=== PATIENT | male | born 1975 | race Caucasian/White ===

== ENCOUNTER 2018-04-26 22:20 | Emergency (ER) | payer OTHER ==
[2018-04-26] MEDS ORDERED: ONDANSETRON 4 MG/2 ML VIAL ONE (22:37)
[2018-04-26] MEDS ORDERED: ASPIRIN 81 MG CHEWABLE TAB ONE (22:38)
[2018-04-26 22:39] LABS: PLATELET COUNT 208 10^3/uL (150-400)
[2018-04-26] MEDS ORDERED: ONDANSETRON 4 MG/2 ML VIAL IVP ONE (22:39)
[2018-04-26] MEDS ORDERED: FAMOTIDINE 20 MG/2 ML SDV ONE (22:56)
[2018-04-26] MEDS ORDERED: FAMOTIDINE 20 MG/2 ML SDV IVP ONE (22:57)
[2018-04-26] MEDS ORDERED: HYDROmorphONE/DILAUDID 1 MG/ML INJ ONE (23:09)
[2018-04-26] MEDS ORDERED: HYDROmorphONE/DILAUDID 1 MG/ML INJ IVP ONE (23:11)
[2018-04-26] MEDS ORDERED: IOPAMIDOL (ISOVUE-300) 100 ML BTL ONE (23:22)
--- NOTE | 2018-04-27 01:12 | EDPHY ---
H & P Stated Complaint: CP radiates to back Time Seen by Provider: 04/26/18 22:31 HPI/ROS: HPI The patient presents with epigastric abdominal pain and chest pain which began about 1 hr prior to presentation. Symptoms started as gradually and got progressively more severe. The pain radiated toward his back and then his chest. He now is feeling a pressure like sensation in his epigastrium. His symptoms began while he was watching television. He has not had any vomiting. He has a history of GERD, however his symptoms have never been like this before. REVIEW OF SYSTEMS 10 systems were reviewed and negative with the exception of the elements mentioned in the history of present illness. PMHx: GERD Soc Hx: No recent alcohol use FHx: Father and grandfather with history of DC PHYSICAL General Appearance: Alert, very uncomfortable appearing, writhing in pain Eyes: Pupils equal and round no pallor or injection ENT, Mouth: Mucous membranes moist Respiratory: There are no retractions, lungs are clear to auscultation Cardiovascular: Regular rate and rhythm Gastrointestinal: Abdomen is soft and tender in the epigastrium, no masses, bowel sounds normal Neurological: A&O, moves all extremities Skin: Warm and dry, no rashes Musculoskeletal: Neck is supple non tender Extremities: symmetrical, full range of motion Psychiatric: Patient is oriented X 3, there is no agitation Source: Patient Exam Limitations: No limitations - Personal History Current Tetanus/Diphtheria Vaccine: Yes Current Tetanus Diphtheria and Acellular Pertussis (TDAP): Yes - Medical/Surgical History Hx Asthma: No Hx Chronic Respiratory Disease: No Hx Diabetes: No Hx Cardiac Disease: No Hx Renal Disease: No Hx Cirrhosis: No Hx Alcoholism: No Hx HIV/AIDS: No Hx Splenectomy or Spleen Trauma: No Other PMH: reflux - Social History Smoking Status: Never smoked Constitutional: Initial Vital Signs Temperature (C) 36.6 C 04/26/18 22:26 Heart Rate 64 04/26/18 22:26 Respiratory Rate 18 04/26/18 22:26 Blood Pressure 132/90 H 04/26/18 22:26 O2 Sat (%) 99 04/26/18 22:26 O2 Delivery Mode Room Air O2 (L/minute) 2 Allergies/Adverse Reactions: No Known Allergies Allergy (Unverified 04/26/18 22:25) Home Medications: Medication Instructions Recorded Omeprazole 20 mg PO DAILY #30 capsule. 04/27/18 Medical Decision Making - Diagnostics EKG Interpretation: EKG: Complete interpretation has been separately recorded in the [email or web address] archive. Summary impression: Normal sinus rhythm Imaging Results: Chest x-ray two view is unremarkable CT abdomen pelvis demonstrates mild duodenitis, discussed with the radiologist tour conductor. Imaging: Discussed imaging studies w/ inbound call center representative Radiologist, I viewed and interpreted images myself Procedures: Bedside limited abdominal Ultrasound- performed and interpreted by me. Indication: Epigastric abdominal pain Findings: Gallbladder appears normal without any gallstones, no pericholecystic fluid, no gallbladder wall thickening; aorta is normal in caliber Impression: No sonographic evidence of cholecystitis or aortic aneurysm Differential Diagnosis: 42-year-old male with history of GERD presents with severe epigastric abdominal pain which radiates to his back and chest. He is brought directly back from the waiting room and he is taken to a high acuity room. Vital signs initially demonstrate hypertension without any tachycardia. Bedside ultrasound was performed urgently by me which demonstrated normal caliber aorta, no evidence of gallstones, normal contractility of his heart without any pericardial effusion. Because of this, he was treated with famotidine, pain medication. Labs were checked and were unremarkable. Patient was reassessed, his pain continued. Decision was made for CT scan of his abdomen pelvis which was relatively unremarkable. On repeat reassessment patient felt completely fine and pain had completely resolved, he asked to be discharged. I suspect his pain is related to dyspepsia from underlying GERD and he may be suffering from severe reflux. Because of this, I will start him on a PPI I have discussed dietary modification and have advised that he follow up with his primary care doctor. He is in agreement with this plan. - Data Points Laboratory Results: Laboratory Results 04/26/18 22:31 04/26/18 22:31 Medications Given: Discontinued Medications Famotidine (Pepcid) 40 mg IVP EDNOW ONE Stop: 04/26/18 22:58 Last Admin: 04/26/18 22:59 Dose: 40 mg Hydromorphone HCl (Dilaudid) 0.5 mg IVP EDNOW ONE Stop: 04/26/18 23:12 Last Admin: 04/26/18 23:11 Dose: 0.5 mg Morphine Sulfate (Morphine) 4 mg IVP EDNOW ONE Stop: 04/26/18 22:40 Last Admin: 04/26/18 22:45 Dose: 4 mg Ondansetron HCl (Zofran) 4 mg IVP EDNOW ONE Stop: 04/26/18 22:40 Last Admin: 04/26/18 22:45 Dose: 4 mg Point of Care Test Results: Chemistry 04/27/18 04/26/18 00:31 22:34 POC Troponin I 0.00 ng/mL ng/mL 0.00 ng/mL ng/mL (0.00-0.08) (0.00-0.08) Departure - Departure Disposition: Home, Routine, Self-Care Clinical Impression: Epigastric pain, Chest pain Condition: Good Instructions: Gastritis (ED), Diet for Stomach Ulcers and Gastritis (ED) Additional Instructions: Please return to the emergency department if your worse in any way. Otherwise I recommend that you follow up with the straightener and aligner I have listed below. Referrals: Philippe Juarez MD [Medical Doctor] - As per Instructions Prescriptions: Omeprazole 20 mg PO DAILY #30 capsule.
[2018-04-27 01:30] VITALS: BP 121/80
--- NOTE | 2018-04-27 08:16 | CPEKG ---
Test Reason : OPEN Blood Pressure : / mmHG Vent. Rate : 070 BPM Atrial Rate : 069 BPM P-R Int : 164 ms QRS Dur : 080 ms QT Int : 369 ms P-R-T Axes : 002 014 019 degrees QTc Int : 399 ms Sinus rhythm Confirmed by Mohini Valdes ([id number]) on 04/27/2018 8:16:08 AM Referred By: Confirmed By:Mohini Valdes
== END 2018-04-27 01:29 | disposition home or self-care (01) ==
DX: R10.13 Epigastric pain (principal); R07.9 Chest pain, unspecified
CPT/HCPCS: 84484-PO; 96374; J1170; J2270; J2405; Q9967

== ENCOUNTER 2018-06-25 18:43 | Inpatient (IN) | payer OTHER ==
[2018-06-25] MEDS ORDERED: NS 1,000 ML IV ONE ×2 (18:55→20:09)
--- NOTE | 2018-06-25 19:02 | EDPHY ---
H & P Stated Complaint: stroke like symptoms since this morning, slured speech Time Seen by Provider: 06/25/18 18:56 HPI/ROS: HPI CHIEF COMPLAINT: Possible stroke. Symptoms Woke up with this morning 7am. HISTORY OF PRESENT ILLNESS: 42-year-old male, presents emergency room for trouble with his speech. Patient states that he woke up this morning and realized he was having some trouble with this thought process this was around 7: 00 a.m.. Or close to 12 hr ago. He then proceeded to go to work while at work around 9:00 a.m. His coworkers noticed that his speech was a little bit funny they became concerned about this so they decided that he should go home. They recommend he go home and seek medical attention. The patient went home and took a nap. He states he slept for 2-3 hours. He once he woke up he noticed there are multiple miss calls from his coworkers they again encouraged him to seek medical attention he decided to go to urgent care. He arrived urgent care around 4:00 p.m. Where they thought that he may be having a stroke with trouble with his speech. They recommended to go to the hospital the patient refused ambulance transport and he drove to the hospital. He has to see a physician when he arrived to the hospital but at some point there was some confusion and it seems like he did not check into the emergency room and was given a list of outpatient providers. He then went back to the urgent care where then became concerned and called 911. He arrives to the emergency room by EMS with no focal weakness no numbness or tingling he does report to me that he feels that his speech is slow and that he has trouble getting his thought process and words is words together and out correctly. Is noted the patient is from [place], he does have a thick accent. He is speaking upon arrival and making sense and I can't understand what he speaks However patient reports that he feels that his thought processes slow. The patient denies any focal weakness, denies chest pain or shortness of breath , denies headache, denies numbness or tingling. Denies visual disturbance. He has never had anything like this before. Past Medical History: Denies significant medical history Past Surgical History: Denies significant surgical history Social History: Occasional alcohol use. Denies drugs or tobacco. Family History: Noncontributory ROS REVIEW OF SYSTEMS: 10 Systems were reviewed and negative with the exception of the elements mentioned in the history of present illness. Exam Constitutional appears well nontoxic, triage nursing summary reviewed, vital signs reviewed, awake/alert. Eyes normal conjunctivae and sclera, EOMI, PERRLA. HENT normal inspection, atraumatic, moist mucus membranes, no epistaxis, neck supple/ no meningismus, no raccoon eyes. Respiratory clear to auscultation bilaterally, normal breath sounds, no respiratory distress, no wheezing. Cardiovascular rate normal, regular rhythm, no murmur, no edema, distal pulses normal. Gastrointestinal soft, non-tender, no rebound, no guarding, normal bowel sounds, no distension, no pulsatile mass. Genitourinary no CVA tenderness. Musculoskeletal no midline vertebral tenderness, full range of motion, no calf swelling, no tenderness of extremities, no meningismus, good pulses, neurovascularly intact. Skin pink, warm, & dry, no rash, skin atraumatic. Neurologic unremarkable neurological exam awake, alert and oriented x 3, AAOx3 , moves all 4 extremities equally, motor intact, sensory intact, CN II-XII intact, normal cerebellar, normal vision, normal speech. No speech deficit for me. However accident present. No word salad. No facial droop. Psychiatric normal mood/affect. Heme/Lymph/Immune no lymphadenopathy. Differential Diagnosis: Includes but is not limited to in a particular order TIA, CVA, intracranial bleed, [employer], electrolyte disturbance Medical Decision Making: Plan for this patient IV establishment with blood draw , EKG, cardiac marker, CT scan head without contrast, CT angiogram head and neck will also consult neurology. Given that the patient's symptoms were noticed very early this morning and that he may have woken up with these he is not a tPA candidate this time. Will proceed with CT scan head and angiogram Will most likely admit for TIA/further evaluation. Patient will most likely need MR. Re-evaluation: EKG interpretation by me on record in [facility] system. Impression time of EKG 1858, sinus rhythm rate of 70 early re-pole pattern present. No acute ischemia. CT scan head without contrast: Negative for acute bleed. However there is an abnormality hypodensity that could possibly be a tumor in the left thalamus. CT angiogram of the head and neck show no evidence of occlusion or large vessel disease. However abnormality seen the left thalamus. Please see full dictation report from Dr. Bryan about the CT scans. Plan for MRI with and without contrast better delineate this left thalamic lesion. MRI of the brain with without contrast called to me by Dr. Bryan this shows a left thalamic infarct. Less likely tumor. No bleed. Will consult [facility] Will update the hospitalist service. 2240: I CONSULTED with Dr. Wolf, with [facility]. Discussed case in detail about the patient's findings on CT imaging, MRI imaging and the patient' s medical course ,as well as the patient's medical history of today's stroke symptoms, that started around 7:00 a.m. This morning when he woke up. He is not a tPA candidate due to the timing and wake up symptoms. However Dr. Wolf, would like full dose Asprin. No thrombus seen in Arteries on CTA. Would like to CT head and CT angiograms repeated in the morning. No tPA. Frequent neuro checks. Neurology to see in the morning. No need to transfer the patient. Patient updated. NIH Stroke Scale/Score (NIHSS) from [email or web address] on 06/25/2018 All calculations should be rechecked by clinician prior to use RESULT SUMMARY: 1 points NIH Stroke Scale INPUTS: 1A: Level of consciousness > 0 = Alert; keenly responsive 1B: Ask month and age > 0 = Both questions right 1C: 'Blink eyes' & 'squeeze hands' > 0 = Performs both tasks 2: Horizontal extraocular movements > 0 = Normal 3: Visual shore > 0 = No visual loss 4: Facial palsy > 0 = Normal symmetry 5A: Left arm motor drift > 0 = No drift for 10 seconds 5B: Right arm motor drift > 0 = No drift for 10 seconds 6A: Left leg motor drift > 0 = No drift for 5 seconds 6B: Right leg motor drift > 0 = No drift for 5 seconds 7: Limb Ataxia > 0 = No ataxia 8: Sensation > 0 = Normal; no sensory loss 9: Language/aphasia > 1 = Mild-moderate aphasia: some obvious changes, without significant limitation 10: Dysarthria > 0 = Normal 11: Extinction/inattention > 0 = No abnormality Source: Patient, EMS - Personal History Current Tetanus Diphtheria and Acellular Pertussis (TDAP): Yes - Medical/Surgical History Hx Asthma: No Hx Chronic Respiratory Disease: No Hx Diabetes: No Hx Cardiac Disease: No Hx Renal Disease: No Hx Cirrhosis: No Hx Alcoholism: No Hx HIV/AIDS: No Hx Splenectomy or Spleen Trauma: No Other PMH: reflux - Social History Smoking Status: Never smoked Constitutional: Initial Vital Signs Temperature (C) 36 C 06/25/18 18:46 Heart Rate 72 06/25/18 18:46 Respiratory Rate 16 06/25/18 18:46 Blood Pressure 164/102 H 06/25/18 18:46 O2 Sat (%) 95 06/25/18 18:46 O2 Delivery Mode Room Air Allergies/Adverse Reactions: No Known Allergies Allergy (Unverified 04/26/18 22:25) Home Medications: Medication Instructions Recorded NK [No Known Home Meds] 06/25/18 Medical Decision Making - Data Points Laboratory Results: Laboratory Results 06/25/18 19:05 06/25/18 19:05 06/26/18 12:20 Hemoglobin A1c 5.6 % % (4.0-6.0) Estim Average Glucose 114 mg/dL mg/dL (68-126) Medications Given: Discontinued Medications Aspirin Buffered (Aspirin Ec) 325 mg PO ONCE ONE Stop: 06/25/18 23:19 Last Admin: 06/25/18 23:23 Dose: 325 mg Sodium Chloride (Ns) 1,000 mls @ 0 mls/hr IV ONCE ONE; Wide Open PRN Reason: Protocol Stop: 06/25/18 18:56 Last Admin: 06/25/18 19:03 Dose: 1,000 mls Sodium Chloride (Ns) 1,000 mls @ 0 mls/hr IV ONCE ONE PRN Reason: Wide Open Stop: 06/25/18 20:10 Last Admin: 06/25/18 20:11 Dose: 1,000 mls Heparin Sodium (Porcine) (Heparin 50 Units/Ml (Premix)) 500 mls @ 0 mls/hr IV EDNOW ONE; Per Protocol PRN Reason: Protocol Stop: 06/25/18 22:44 Last Admin: 06/26/18 00:47 Dose: Not Given Point of Care Test Results: Chemistry 06/25/18 18:59 POC Troponin I 0.00 ng/mL ng/mL (0.00-0.08) Departure - Departure Disposition: [facility] Acute Clinical Impression: Thalamic infarction Condition: Good
[2018-06-25 19:15] LABS: PLATELET COUNT 273 10^3/uL (150-400)
[2018-06-25 19:20] LABS: INR 0.91 (0.83-1.16); PROTIME(PATIENT) 12.5 SEC (12.0-15.0)
[2018-06-25] MEDS ORDERED: IOPAMIDOL (ISOVUE 370) 100 ML BTL IV ONE (19:25)
[2018-06-25] MEDS ORDERED: ONDANSETRON DISINTEGRATING 4 MG TAB PO PRN (20:59)
[2018-06-25] MEDS ORDERED: ONDANSETRON 4 MG/2 ML VIAL IVP PRN (20:59)
[2018-06-25] MEDS ORDERED: ACETAMINOPHEN 325 MG TAB PO PRN (20:59)
[2018-06-25] MEDS ORDERED: GADOBUTROL 10 ML VIAL IVP ONE (21:07)
--- NOTE | 2018-06-25 21:53 | PDGENHP ---
<Sea Betts N - Last Filed: 06/25/18 21:51> History and Physical - Chief Complaint Changes in Speech - History of Present Illness Patrick De Los Santos is a 42 yo M with no significant PMHx who presents to [facility] for change in speech. Patient reports that upon awakening this morning he began to have trouble with thinking. He went to work at 9 AM where his coworkers noticed a change in speech and directed him to be seen by a doctor. He went home and took a nap for 2 hours. He then proceeded to go to an urgent care center where he was referred to the ED for further evaluation. He came to [facility] but was confused and seems he did not check into ED but was given a list of outpatient providers. He then returned to urgent care where 911 was called and patient was brought to ED. He notes speech has improved almost back to baseline since arrival to ED. History Information - Allergies/Home Medication List Allergies/Adverse Reactions: No Known Allergies Allergy (Unverified 04/26/18 22:25) Home Medications: NK [No Known Home Meds] 06/25/18 [Last Taken Unknown] I have personally reviewed and updated: family history, medical history, social history, surgical history - Past Medical History no pertinent PMH - Surgical History Reports: no pertinent surgical hx - Family History Positive for: non-pertinent - Social History Smoking Status: Never smoked Review of Systems Review of Systems: ROS: 10pt was reviewed & negative except for what was stated in HPI & below Physical Exam Physical Exam: Temp Pulse Resp BP Pulse Ox 36 C 66 16 128/79 H 94 06/25/18 18:46 06/25/18 21:43 06/25/18 21:43 06/25/18 21:43 06/25/18 21:43 Constitutional: no apparent distress Eyes: PERRL Ears, Nose, Mouth, Throat: moist mucous membranes Cardiovascular: regular rate and rhythym Respiratory: no respiratory distress Gastrointestinal: normoactive bowel sounds Skin: warm Musculoskeletal: full muscle strength Neurologic: AAOx3 Psychiatric: interacting appropriately Lab Data & Imaging Review 06/25/18 19:05 06/25/18 19:05 WBC 9.82 10^3/uL (3.80-9.50) H 06/25/18 19:05 RBC 6.04 10^6/uL (4.40-6.38) 06/25/18 19:05 Hgb 17.7 g/dL (13.7-17.5) H 06/25/18 19:05 Hct 54.0 % (40.0-51.0) H 06/25/18 19:05 MCV 89.4 fL (81.5-99.8) 06/25/18 19:05 MCH 29.3 pg (27.9-34.1) 06/25/18 19:05 MCHC 32.8 g/dL (32.4-36.7) 06/25/18 19:05 RDW 12.2 % (11.5-15.2) 06/25/18 19:05 Plt Count 273 10^3/uL (150-400) 06/25/18 19:05 MPV 11.3 fL (8.7-11.7) 06/25/18 19:05 Neut % (Auto) 46.8 % (39.3-74.2) 06/25/18 19:05 Lymph % (Auto) 41.5 % (15.0-45.0) 06/25/18 19:05 [place] % (Auto) 10.0 % (4.5-13.0) 06/25/18 19:05 Eos % (Auto) 1.1 % (0.6-7.6) 06/25/18 19:05 Baso % (Auto) 0.5 % (0.3-1.7) 06/25/18 19:05 Nucleat RBC Rel Count 0.0 % (0.0-0.2) 06/25/18 19:05 Absolute Neuts (auto) 4.59 10^3/uL (1.70-6.50) 06/25/18 19:05 Absolute Lymphs (auto) 4.08 10^3/uL (1.00-3.00) H 06/25/18 19:05 Absolute Monos (auto) 0.98 10^3/uL (0.30-0.80) H 06/25/18 19:05 Absolute Eos (auto) 0.11 10^3/uL (0.03-0.40) 06/25/18 19:05 Absolute Basos (auto) 0.05 10^3/uL (0.02-0.10) 06/25/18 19:05 Absolute Nucleated RBC 0.00 10^3/uL (0-0.01) 06/25/18 19:05 Immature Gran % 0.1 % (0.0-1.1) 06/25/18 19:05 Immature Gran # 0.01 10^3/uL (0.00-0.10) 06/25/18 19:05 PT 12.5 SEC (12.0-15.0) 06/25/18 19:05 INR 0.91 (0.83-1.16) 06/25/18 19:05 Sodium 140 mEq/L (135-145) 06/25/18 19:05 Potassium 4.7 mEq/L (3.5-5.2) 06/25/18 19:05 Chloride 108 mEq/L (97-110) 06/25/18 19:05 Carbon Dioxide 23 mEq/l (22-31) 06/25/18 19:05 Anion Gap 9 mEq/L (6-14) 06/25/18 19:05 BUN 14 mg/dL (7-23) 06/25/18 19:05 Creatinine 0.9 mg/dL (0.7-1.3) 06/25/18 19:05 Estimated GFR > 60 06/25/18 19:05 Glucose 81 mg/dL (70-100) 06/25/18 19:05 Calcium 9.7 mg/dL (8.5-10.4) 06/25/18 19:05 POC Troponin I 0.00 ng/mL (0.00-0.08) 06/25/18 18:59 Assessment & Plan Assessment: L Thalamic Abnormality - Presents with acute onset change in speech at 7 AM this morning - CT Head w/o IVC shows L Thalamic abnormality (19x13 mm) without mass effect of hemorrhage - MRI Brain ordered to further evaluate CT findings - Neurology consult placed for patient to be seen in the AM, pending MRI results Dysarthria/AMS - Presents with acute onset dysarthia at 7 AM this morning - CT findings as above - Speech consult placed FEN: Regular diet PPx: SCDs Code: FULL Dispo: Admit to Observation <Primitivo Roldan - Last Filed: 06/25/18 22:47> History and Physical - History of Present Illness Review of Systems Review of Systems: Physical Exam Physical Exam: Temp Pulse Resp BP Pulse Ox 37 C 66 16 128/79 H 94 06/25/18 21:51 06/25/18 21:51 06/25/18 21:51 06/25/18 21:51 06/25/18 21:51 Lab Data & Imaging Review 06/25/18 19:05 06/25/18 19:05 WBC 9.82 10^3/uL (3.80-9.50) H 06/25/18 19:05 RBC 6.04 10^6/uL (4.40-6.38) 06/25/18 19:05 Hgb 17.7 g/dL (13.7-17.5) H 06/25/18 19:05 Hct 54.0 % (40.0-51.0) H 06/25/18 19:05 MCV 89.4 fL (81.5-99.8) 06/25/18 19:05 MCH 29.3 pg (27.9-34.1) 06/25/18 19:05 MCHC 32.8 g/dL (32.4-36.7) 06/25/18 19:05 RDW 12.2 % (11.5-15.2) 06/25/18 19:05 Plt Count 273 10^3/uL (150-400) 06/25/18 19:05 MPV 11.3 fL (8.7-11.7) 06/25/18 19:05 Neut % (Auto) 46.8 % (39.3-74.2) 06/25/18 19:05 Lymph % (Auto) 41.5 % (15.0-45.0) 06/25/18 19:05 [place] % (Auto) 10.0 % (4.5-13.0) 06/25/18 19:05 Eos % (Auto) 1.1 % (0.6-7.6) 06/25/18 19:05 Baso % (Auto) 0.5 % (0.3-1.7) 06/25/18 19:05 Nucleat RBC Rel Count 0.0 % (0.0-0.2) 06/25/18 19:05 Absolute Neuts (auto) 4.59 10^3/uL (1.70-6.50) 06/25/18 19:05 Absolute Lymphs (auto) 4.08 10^3/uL (1.00-3.00) H 06/25/18 19:05 Absolute Monos (auto) 0.98 10^3/uL (0.30-0.80) H 06/25/18 19:05 Absolute Eos (auto) 0.11 10^3/uL (0.03-0.40) 06/25/18 19:05 Absolute Basos (auto) 0.05 10^3/uL (0.02-0.10) 06/25/18 19:05 Absolute Nucleated RBC 0.00 10^3/uL (0-0.01) 06/25/18 19:05 Immature Gran % 0.1 % (0.0-1.1) 06/25/18 19:05 Immature Gran # 0.01 10^3/uL (0.00-0.10) 06/25/18 19:05 PT 12.5 SEC (12.0-15.0) 06/25/18 19:05 INR 0.91 (0.83-1.16) 06/25/18 19:05 Sodium 140 mEq/L (135-145) 06/25/18 19:05 Potassium 4.7 mEq/L (3.5-5.2) 06/25/18 19:05 Chloride 108 mEq/L (97-110) 06/25/18 19:05 Carbon Dioxide 23 mEq/l (22-31) 06/25/18 19:05 Anion Gap 9 mEq/L (6-14) 06/25/18 19:05 BUN 14 mg/dL (7-23) 06/25/18 19:05 Creatinine 0.9 mg/dL (0.7-1.3) 06/25/18 19:05 Estimated GFR > 60 06/25/18 19:05 Glucose 81 mg/dL (70-100) 06/25/18 19:05 Calcium 9.7 mg/dL (8.5-10.4) 06/25/18 19:05 POC Troponin I 0.00 ng/mL (0.00-0.08) 06/25/18 18:59 Assessment & Plan Plan: ED physician Dr. Sinclair spoke with [facility] who requested low intensity heparin drip with no bolus. I will order.
[2018-06-25] MEDS ORDERED: HEPARIN/DEXTROSE 500 ML IV ONE (22:43)
[2018-06-25] MEDS ORDERED: HEPARIN 10,000 UNIT/10 ML MDV (1,000 UNIT/ML) IVP PRN (22:44)
[2018-06-25] MEDS ORDERED: HEPARIN/DEXTROSE 500 ML IV SCH (22:45)
[2018-06-25] MEDS ORDERED: ASPIRIN EC 325 MG TAB PO ONE ×2 (23:18→23:20)
--- NOTE | 2018-06-26 10:18 | ASMTCMCOM ---
CM Note CM Note Notes: Pts case discussed w/ ZEKE Miranda. Pt is a 42 y/o man admitted for a possible brain tumor. SPL and neuro consult has been ordered. Pt will most likely d/c independent when medically stable. No therapies ordered at this time. CM available for changes. Plan: Independent Date Signed: 06/26/2018 10:18 AM Electronically Signed By:GEMA Casillas
--- NOTE | 2018-06-26 12:19 | NEUROPROG ---
Assessment: [id number] - Neurology Consult: - CC: Dr. Betts consulted neurology for change in speech. Results placed in EMR for his review. - HPI: Pt without PMHx and on no medication noted on awakening on 06/25/18 he noted a change in his speech and a sense of altered thinking leading to admission at [facility]. Brain MRI wwo showed a probable left thalamic stroke though low grade glioma was also possible but less likely. 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 Pt admitted for stroke evaluation. I initially saw the patient on 06/26/18. His neurologic exam was normal (NIH SS 0) and he felt back to his normal baseline. TTE was pending for further evaluation. - PMHx: none - SHx: no tobacco FHx: NC - ROS: Pt denied acute fever, total vision loss, active severe chest pain, respiratory failure, total body severe rash, total bowel/bladder incontinence, psychosis, active seizures, or active bleeding - O: VS reviewed General: Alert Eyes: Fundoscopic exam not able to visualize optic disks CV: Heart RRR, no murmur, no carotid bruit Lungs: Clear to auscultation bilaterally, no rhonchi or rales Neuro: - Mental: . Oriented x person/place/date . concentration appears normal . speech fluency/comprehension normal . memory appears normal . fund of knowledge appear intact - Cranial Nerves: . II: PERRL, VFFTC . III/IV/: EOMI, no nystagmus, normal smooth pursuits, no Ptosis . V: facial sensation intact to LT . VII: face symmetric to eye closure and smile . VIII: hearing intact to conversation . IX/X: uvula raises symmetrically . XI: SCM 5/5 B/L strength . XII: tongue protrudes midline w/nl strength - Motor: . Tone: normal tone in all 4 extremity . 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 Differential diagnosis includes a low-grade neoplasm, which is felt to be less likely considering the acute nature of the patient's presenting problem. (I personally visualized the image 06/26/18) - Assessment: 1. Left thalamic stroke on 06/25/18: Normal neurologic exam 06/26/18 with NIH SS 0. 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 Brain MRI wo on 06/25/18 showed left thalamic stroke (although neoplasm was also possible). Will get full stroke in the young evaluation with TTE and if unrevealing will proceed to JOCY and LINQ monitor. Will plan on repeat brain MRI wwo in 3 months to ensure it is a stroke and not neoplasm. If stroke came from congenital narrowing of mid- basilar artery than I feel stroke reduction is best with antiplatelet and statin therapy (if LDL > 70). 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 - H1AC < 7.0 (pending) - LDL < 70 (pending), recommend beginning statin if above this level - PT/OT/Speech to determine any rehab needs - TTE, if negative then recommend JOCY to evaluate for any stroke source given patients young age - 24 hour telemetry, if negative recommend LINQ monitor - F/U in neurology clinic in 1-4 weeks, will consider hematology referral for any hypercoagulable states and repeat brain MRI wwo in 3 months to ensure it is stroke and not low grade glioma Objective: Vital Signs Temp Pulse Resp BP Pulse Ox 36.7 C 62 11 L 126/80 H 96 06/26/18 11:37 06/26/18 11:37 06/26/18 11:37 06/26/18 11:37 06/26/18 11:37 06/25/18 06/26/18 06/27/18 05:59 05:59 05:59 Intake Total 2300 Balance 2300 PT 12.5 SEC (12.0-15.0) 06/25/18 19:05 INR 0.91 (0.83-1.16) 06/25/18 19:05 Allergies/Adverse Reactions: No Known Allergies Allergy (Unverified 04/26/18 22:25)
--- NOTE | 2018-06-26 13:41 | HOSPPROG ---
Hospitalist Progress Note Assessment/Plan: 42y male with slurred speech and lethargy. First encounter, chart reviewed. D/W Dr Campbell. # L Thalamic stroke - Presents with acute onset change in speech at 7 AM on 06/25/18 - CT Head w/o IVC shows L Thalamic abnormality - MRI Brain left thalamic stroke - cont stroke workup -TTE -possibly JOCY and LINQ monitor -lipid panel #Dysarthria/AMS - Presents with acute onset dysarthia - CT findings as above - Speech consult placed -resolved #Hx of hyperlipidemia -check labs -pt not treated in the past -Ha1C pending FEN: Regular diet PPx: SCDs Code: FULL Dispo: change to inpt status requires further workup in hospital setting ECHO Lipid panel ASA F/U in neurology clinic in 1-4 weeks, will consider hematology referral for any hypercoagulable states repeat brain MRI wwo in 3 months to ensure it is stroke and not low grade glioma D/W pt and Subjective: Feeling fine. Anxious to leave. No pain. Objective: Vital Signs Temp Pulse Resp BP Pulse Ox 36.7 C 62 11 L 126/80 H 96 06/26/18 11:37 06/26/18 11:37 06/26/18 11:37 06/26/18 11:37 06/26/18 11:37 06/25/18 06/26/18 06/27/18 05:59 05:59 05:59 Intake Total 2300 Balance 2300 PT 12.5 SEC (12.0-15.0) 06/25/18 19:05 INR 0.91 (0.83-1.16) 06/25/18 19:05 - Physical Exam Constitutional: no apparent distress, appears nourished, not in pain Eyes: PERRL, anicteric sclera, EOMI Ears, Nose, Mouth, Throat: moist mucous membranes, hearing normal, ears appear normal Cardiovascular: No JVD, No tachycardia, No edema Respiratory: no respiratory distress, no rales or rhonchi, reduced air movement Gastrointestinal: normoactive bowel sounds, No tenderness, No ascites Skin: warm, normal color, No mottled Musculoskeletal: full muscle strength, normal joint ROM, no joint effusions Neurologic: AAOx3 Psychiatric: interacting appropriately, not anxious, not encephalopathic, thought process linear ICD10 Worksheet Patient Problems: Problems Problem Status Onset Thalamic infarction Acute
--- NOTE | 2018-06-27 08:01 | CPEKG ---
Test Reason : OPEN Blood Pressure : / mmHG Vent. Rate : 070 BPM Atrial Rate : 069 BPM P-R Int : 175 ms QRS Dur : 082 ms QT Int : 375 ms P-R-T Axes : 015 006 010 degrees QTc Int : [address] elev, probable normal early repol pattern Confirmed by Jong Issa ([id number]) on 06/27/2018 8:00:37 AM Referred By: Confirmed By:Jong Issa
[2018-06-27] MEDS ORDERED: ASPIRIN 325 MG TAB PO SCH (09:00)
--- NOTE | 2018-06-27 09:20 | ECHO ---
[email or web address] [address] [address] Main: [phone] Fax: Transthoracic Echocardiogram Name: KVNG PRIEST MR#: [id number] Study Date: 06/26/2018 Study Time: 01:48 PM Date of : 1975 Age: 42 year(s) Height: 190.5 cm (75 in.) Weight: 90.27 kg (199 lb.) BSA: 2.19 m2 Gender: Male Examination: Echo with Agitated Saline Indication: TIA, Agitated Saline Study Image Quality: Contrast: Requested by: Rell Campbell BP: 124 mmHg/80 mmHg Heart Rate: Rhythm: Normal sinus rhythm Indication: TIA, Agitated Saline Study Procedure Staff Aerologist: Ino Roa RDCS Reading Physician: Ayaz Lovell MD Requesting Provider: Conclusions: Normal size left ventricle. No LV hypertrophy. Normal global systolic LV function. EF is 67 %. No regional wall motion abnormality. An agitated saline study was performed and was negative for intracardiac shunting. There is no mitral valve regurgitation. The aortic valve is normal in appearance and function. There is no significant aortic valve regurgitation. There is no tricuspid valve regurgitation. There is no pulmonic regurgitation seen. No pericardial effusion. Measurements: Chambers Valvular Assessment AV/MV Valvular Assessment TV/PV Normal Normal Normal Name Value Range Name Value Range Name Value Range Ao Little (MM): 3.3 cm (2.2 cm-3.7 AV Vmax: 1.15 m/s (1 m/s-1.7 PV Vmax: 0.73 m/s (0.6 m/s-0.9 cm) m/s) m/s) IVSd (2D): 0.8 cm (0.6 cm-1.1 AV maxP mmHg ( - ) PV PGmax: 2 mmHg ( - ) cm) LVOT Vmax: 0.82 m/s (0.7 m/s-1.1 LVDd (2D): 4.9 cm (4.2 cm-5.9 m/s) cm) MV E Vmax: 0.76 m/s ( - ) LVDs (2D): 3.1 cm (2.1 cm-4 MV A Vmax: 0.57 m/s ( - ) cm) MV E/A: 1.33 ( - ) LVPWd (2D): 0.9 cm (0.6 cm-1 cm) LVEF (2D): 67 (>=54 %) Continued Measurements: Patient: KVNG PRIEST Study Date: 06/26/2018 Page 1 of 2 01:48 PM Chambers Valvular Assessment AV/MV Name Value Name Value LADs Lon.8 cm MV E/E' Septal: 5.50 LA Area: 14.6 cm2 MV E/E' Lateral: 5.30 LA Volume: 39 ml LA Volume Index: 17.8 ml/m2 Findings: Left Ventricle: Normal size left ventricle. No LV hypertrophy. Normal global systolic LV function. EF is 67 %. No regional wall motion abnormality. Normal diastolic LV function. Right Ventricle: Normal size right ventricle. Normal RV function. Left Atrium: The left atrium is normal in size. An agitated saline study was performed and was negative for intracardiac shunting. Right Atrium: The right atrium is normal in size. Mitral Valve: The mitral valve is normal in appearance and function. There is no mitral valve regurgitation. Aortic Valve: The aortic valve is normal in appearance and function. There is no significant aortic valve regurgitation. No aortic valve stenosis is present. The aortic valve opens well.. Tricuspid Valve: The tricuspid valve is normal in appearance and function. There is no tricuspid valve regurgitation. Pulmonic Valve: The pulmonic valve is normal in appearance and function. There is no pulmonic regurgitation seen. Aorta: The aorta is normal. Pericardium: No pericardial effusion. (No Signature Object) Patient: KVNG PRIEST Study Date: 06/26/2018 Page 2 of 2 01:48 PM [id number]
--- NOTE | 2018-06-27 10:08 | NEUROPROG ---
Assessment: [id number] - Neurology Consult: - CC: F/U for stroke - Narrative Summary: Pt without PMHx and on no medication noted on awakening on 06/25/18 he noted a change in his speech and a sense of altered thinking leading to admission at [facility]. Brain MRI wwo showed a probable left thalamic stroke though low grade glioma was also possible but less likely. 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 Pt admitted for stroke evaluation. I initially saw the patient on 06/26/18. His neurologic exam was normal (NIH SS 0) and he felt back to his normal baseline. TTE was pending for further evaluation. - HPI: F/U 06/27/18. Telemetry showed no afib. LDL > 70 so will recommend statin. H1AC 5.6. Pt doing well w/o symptoms. Pending transesophageal echocardiogram and LINQ monitor placement. No new complaints. 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 Differential diagnosis includes a low-grade neoplasm, which is felt to be less likely considering the acute nature of the patient's presenting problem. - 06/26/18- TTE: EF 67%, no intracardiac shunting - Assessment: 1. Left thalamic stroke on 06/25/18: Normal neurologic exam 06/26/18 with NIH SS 0. 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 Brain MRI wo on 06/25/18 showed left thalamic stroke (although neoplasm was also possible). Will get full stroke in the young evaluation with TTE and if unrevealing will proceed to JOCY and LINQ monitor. Will plan on repeat brain MRI wwo in 3 months to ensure it is a stroke and not neoplasm. If stroke came from congenital narrowing of mid- basilar artery than I feel stroke reduction is best with antiplatelet and statin therapy (if LDL > 70). 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 - H1AC < 7.0 (5.6) - LDL < 70 (119), recommend beginning statin - PT/OT/Speech to determine any rehab needs - recommend JOCY to evaluate for any stroke source given patients young age - recommend LINQ monitor to assess for paroxysmal afib - F/U in neurology clinic in 1-4 weeks, will consider hematology referral for any hypercoagulable states and repeat brain MRI wwo in 3 months to ensure it is stroke and not low grade glioma Objective: Vital Signs Temp Pulse Resp BP Pulse Ox 36.8 C 66 16 107/72 96 06/27/18 07:34 06/27/18 07:34 06/27/18 07:34 06/27/18 07:34 06/27/18 07:34 06/26/18 06/27/18 06/28/18 05:59 05:59 05:59 Intake Total 1150 Output Total 600 Balance 550 PT 12.5 SEC (12.0-15.0) 06/25/18 19:05 INR 0.91 (0.83-1.16) 06/25/18 19:05 Allergies/Adverse Reactions: No Known Allergies Allergy (Unverified 04/26/18 22:25)
[2018-06-27] MEDS ORDERED: NS 1,000 ML IV ONE (14:30)
--- NOTE | 2018-06-27 14:32 | PDCARCONS ---
Cardiology Consult Reason for Consult: new stroke Chief Complaint: slurred speech was noted as well as some degree of word finding difficulty Requesting Physician: neuro/hospitalist team History of Present Illness: Patient is a 42 y/o male with unremarkable past medical history (no HTN, HLP, CAD, or DM), who presented to [facility] ER after coworkers noted altered speech. In review of the notes from the ER and hospitalist, on Saturday this week, changes to the patient's speech were noted. Coworkers recommended the patient proceed to urgent care or ER given changes that were noted. There may have been some degree of miscommunication in that the patient did not initially proceed to the ER. After several hours at home, and some phone calls from coworkers, the patient did get taken to the ER. Work up with MRI that delineated a left thalamic ischaemic infarction. Neurology was consulted and recommended TTE. Surface echo without overt pathology noted (normal systolic function, and no clear valve pathology). Given a lack of pathology, recommendations were for both TTE and LINQ placement to study the patient more long-term for arrhythmic etiology. Today, the patient is free of cardiovascular complaints. No chest pains or pressure. No PND or orthopnea. No dizziness or lightheadedness. Patient feels that the speech is still not completely "back to normal", but better than that which was noted at the time of admission. Remainder of the 12 point review of systems was unremarkable History Information - Allergies/Home Medication List Allergies/Adverse Reactions: No Known Allergies Allergy (Unverified 04/26/18 22:25) Home Medications: NK [No Known Home Meds] 06/25/18 [Last Taken Unknown] I have personally reviewed and updated: family history, medical history, social history, surgical history Past Medical History: - Past Medical History no pertinent PMH - Surgical History Reports: no pertinent surgical hx - Family History Positive for: non-pertinent - Social History Smoking Status: Never smoked Alcohol Use: None Drug Use: None Cardiac History - Cardiac History Timing/Duration: Hours Severity: moderate Severity Scale: 4 Activities at Onset: activity Modifying Factors: improves with: rest Associated Symptoms: other (slurred speech) Age in Years: < 65 Sex: Male Congestive Heart Failure History: No Hypertension History: No Stroke/TIA/Thromboembolism History: Yes Vascular Disease History: No Diabetes Mellitus: No [id number] Score: 2 Physical Exam Physical Exam: Temp Pulse Resp BP Pulse Ox 36.8 C 67 17 130/87 H 95 06/27/18 12:00 06/27/18 12:00 06/27/18 12:00 06/27/18 12:00 06/27/18 12:00 Constitutional: no apparent distress, appears nourished, not in pain Eyes: PERRL, EOMI Ears, Nose, Mouth, Throat: moist mucous membranes, hearing normal, ears appear normal Cardiovascular: regular rate and rhythym, pulses symmetric bilaterally, No systolic murmur, No JVD, No edema Peripheral Pulses: 2+: dorsalis-pedis (R), dorsalis-pedis (L) Respiratory: no respiratory distress, no rales or rhonchi, clear to auscultation Gastrointestinal: normoactive bowel sounds Skin: warm, normal color Musculoskeletal: full muscle strength Neurologic: AAOx3, sensation intact bilaterally, CN II-XII Intact, other ( slurring of speech ), No facial droop Psychiatric: interacting appropriately, not anxious, not encephalopathic Lab and Imaging 06/25/18 19:05 06/25/18 19:05 WBC 9.82 10^3/uL (3.80-9.50) H 06/25/18 19:05 RBC 6.04 10^6/uL (4.40-6.38) 06/25/18 19:05 Hgb 17.7 g/dL (13.7-17.5) H 06/25/18 19:05 Hct 54.0 % (40.0-51.0) H 06/25/18 19:05 MCV 89.4 fL (81.5-99.8) 06/25/18 19:05 MCH 29.3 pg (27.9-34.1) 06/25/18 19:05 MCHC 32.8 g/dL (32.4-36.7) 06/25/18 19:05 RDW 12.2 % (11.5-15.2) 06/25/18 19:05 Plt Count 273 10^3/uL (150-400) 06/25/18 19:05 MPV 11.3 fL (8.7-11.7) 06/25/18 19:05 Neut % (Auto) 46.8 % (39.3-74.2) 06/25/18 19:05 Lymph % (Auto) 41.5 % (15.0-45.0) 06/25/18 19:05 [place] % (Auto) 10.0 % (4.5-13.0) 06/25/18 19:05 Eos % (Auto) 1.1 % (0.6-7.6) 06/25/18 19:05 Baso % (Auto) 0.5 % (0.3-1.7) 06/25/18 19:05 Nucleat RBC Rel Count 0.0 % (0.0-0.2) 06/25/18 19:05 Absolute Neuts (auto) 4.59 10^3/uL (1.70-6.50) 06/25/18 19:05 Absolute Lymphs (auto) 4.08 10^3/uL (1.00-3.00) H 06/25/18 19:05 Absolute Monos (auto) 0.98 10^3/uL (0.30-0.80) H 06/25/18 19:05 Absolute Eos (auto) 0.11 10^3/uL (0.03-0.40) 06/25/18 19:05 Absolute Basos (auto) 0.05 10^3/uL (0.02-0.10) 06/25/18 19:05 Absolute Nucleated RBC 0.00 10^3/uL (0-0.01) 06/25/18 19:05 Immature Gran % 0.1 % (0.0-1.1) 06/25/18 19:05 Immature Gran # 0.01 10^3/uL (0.00-0.10) 06/25/18 19:05 PT 12.5 SEC (12.0-15.0) 06/25/18 19:05 INR 0.91 (0.83-1.16) 06/25/18 19:05 APTT 26.1 SEC (23.0-38.0) 06/25/18 19:05 Sodium 140 mEq/L (135-145) 06/25/18 19:05 Potassium 4.7 mEq/L (3.5-5.2) 06/25/18 19:05 Chloride 108 mEq/L (97-110) 06/25/18 19:05 Carbon Dioxide 23 mEq/l (22-31) 06/25/18 19:05 Anion Gap 9 mEq/L (6-14) 06/25/18 19:05 BUN 14 mg/dL (7-23) 06/25/18 19:05 Creatinine 0.9 mg/dL (0.7-1.3) 06/25/18 19:05 Estimated GFR > 60 06/25/18 19:05 Glucose 81 mg/dL (70-100) 06/25/18 19:05 Hemoglobin A1c 5.6 % (4.0-6.0) 06/26/18 12:20 Estim Average Glucose 114 mg/dL (68-126) 06/26/18 12:20 Calcium 9.7 mg/dL (8.5-10.4) 06/25/18 19:05 POC Troponin I 0.00 ng/mL (0.00-0.08) 06/25/18 18:59 Triglycerides 249 mg/dL (40-150) H 06/27/18 04:38 Cholesterol 202 mg/dL (140-200) H 06/27/18 04:38 Cholesterol Risk Factr 1.4 (0.2-1.0) H 06/27/18 04:38 LDL Cholesterol, Calc 119 mg/dL (70-100) H 06/27/18 04:38 LDL Risk Factor 1.0 (0.2-1.0) 06/27/18 04:38 VLDL Cholesterol 50 mg/dL (8-25) H 06/27/18 04:38 Non-HDL Cholesterol 169 mg/dL (90-129) H 06/27/18 04:38 HDL Cholesterol 33 mg/dL (40-65) L 06/27/18 04:38 LDL/HDL Ratio 3.61 RATIO (1.00-3.64) 06/27/18 04:38 Cholesterol/HDL Ratio 6.12 RATIO (1.00-4.97) H 06/27/18 04:38 Visualized and Interpreted Chest x-ray results: Yes Chest X-ray Interpretation: normal Visualized and Interpreted EKG results: Yes EKG Interpretation: Positive for: normal sinsus rhythm Telemetry: normal sinus rhythm Echocardiogram: No gross pathology A/P Assessment: Patient is a 42 y/o male with new left thalamic CVA, but no history of CAD, HTN , HLP, DM, or atrial fibrillation, who presented to [facility] after slurred speech was noted. Neurology with desire for JOCY and LINQ implant. Surface echo without pathology noted. Plan: (1) Will perform JOCY today (risks and benefits were discussed) (2) LINQ implant - discussion about [employer] given it's non invasive nature, but we would likely get better, intermediate project manager data with LINQ implant
--- NOTE | 2018-06-27 14:55 | PDPROPOC ---
Sedation Plan of Care Sedation Plan of Care: vital signs stable, mental status noted, patient educated of risks, benefits, alternatives, patient can tolerate sedation ASA Classification: ASA 2 Planned drugs: fentanyl, midazolam Mallampati Score: Class 1 Mallampati Reference Image: Patient passed 3-3-2 rule?: Yes
[2018-06-27] MEDS ORDERED: LIDOCAINE 1% 300 MG/30 ML SDV SC ONE (15:40)
[2018-06-27] MEDS ORDERED: MIDAZOLAM 2 MG/2 ML VIAL IVP ONE (15:41)
[2018-06-27] MEDS ORDERED: NS 500 ML IV ONE (15:41)
[2018-06-27] MEDS ORDERED: fentaNYL 100 MCG/2 ML INJ IVP ONE (15:41)
[2018-06-27] MEDS ORDERED: BENZOCAINE UNIT DOSE SPRAY HURRICAINE MM ONE (15:41)
[2018-06-27] MEDS ORDERED: fentaNYL 100 MCG/2 ML INJ ONE (15:44)
[2018-06-27] MEDS ORDERED: MIDAZOLAM 2 MG/2 ML VIAL ONE (15:44)
--- NOTE | 2018-06-27 16:27 | PDCARTEE ---
CAR JOCY CAR JOCY: INDICATIONS: Cryptogenic CVA PROCEDURE DETAILS: After consent was obtained, the patient was placed in the left lateral position to facilitate ease of JOCY probe placement. JOCY was placed without difficulty, and standard views were obtained. PRELIMINARY REPORT: (1) Normal LVEF (2) Normal wall motion (3) Grossly normal chamber dimensions (4) Normal mitral valve without regurgitation noted (5) Trileaflet aortic valve without sclerosis or insufficiency (6) Grossly normal tricuspid valve (7) Grossly normal pulmonic valve (8) No thrombus to the left atrial appendage (9) Bubble contrast injection with one bubble passing from right to left noted - no color flow was noted (10) No atheroma to the descending aorta No etiology for the CVA was noted with this procedure
--- NOTE | 2018-06-27 16:43 | HOSPPROG ---
Hospitalist Progress Note Assessment/Plan: 42y male with slurred speech and lethargy. First encounter, chart reviewed. D/W Dr Campbell. # L Thalamic stroke - Presents with acute onset change in speech at 7 AM on 06/25/18 - CT Head w/o IVC shows L Thalamic abnormality - MRI Brain left thalamic stroke - cont stroke workup -TTE, normal -JOCY and LINQ monitor, D/W Dr Lovell #Dysarthria/AMS - Presents with acute onset dysarthia - CT findings as above - Speech consult placed -resolved #hyperlipidemia -needs statin -pt not treated in the past -Ha1C normal FEN: Regular diet PPx: SCDs Code: FULL Dispo: unclear requires further workup in hospital setting JOCY and LINQ ASA F/U in neurology clinic in 1-4 weeks, repeat brain MRI wwo in 3 months to ensure it is stroke and not low grade glioma Subjective: No symptoms. Frustrated. Objective: Vital Signs Temp Pulse Resp BP Pulse Ox 36.8 C 67 17 130/87 H 95 06/27/18 12:00 06/27/18 12:00 06/27/18 12:00 06/27/18 12:00 06/27/18 12:00 06/26/18 06/27/18 06/28/18 05:59 05:59 05:59 Intake Total 1150 Output Total 600 Balance 550 PT 12.5 SEC (12.0-15.0) 06/25/18 19:05 INR 0.91 (0.83-1.16) 06/25/18 19:05 - Physical Exam Constitutional: no apparent distress, appears nourished, not in pain Eyes: PERRL, anicteric sclera, EOMI Ears, Nose, Mouth, Throat: moist mucous membranes, hearing normal, ears appear normal Cardiovascular: No JVD, No tachycardia, No edema Respiratory: no respiratory distress, no rales or rhonchi, clear to auscultation Gastrointestinal: normoactive bowel sounds, No tenderness, No ascites Skin: warm, normal color, No mottled Musculoskeletal: full muscle strength, normal joint ROM, no joint effusions Neurologic: AAOx3 Psychiatric: not encephalopathic, anxious, agitated ICD10 Worksheet Patient Problems: Problems Problem Status Onset Thalamic infarction Acute
--- NOTE | 2018-06-27 16:58 | SUROPNOTE ---
[facility] Operative Report - Surgery PROCEDURE: LINQ implant INDICATION: cryptogenic CVA PROCEDURE DETAILS: After consent for the procedure was signed and in the chart, the patient was prepped and draped in the usual sterile fashion. Lidocaine to the 2nd/3rd intercostal space for local anesthetic. A #12 blade was used to start an incision, and the provided blade was then used to ensure proper width and breath of the incision. The delivery rail system, pre loaded with the MIHAI, was inserted into the incision. DEVICE DETAILS: SN: [id number] No complications with placement were noted Four vasile were used to close the incision Would have patient seen in clinic in 1 week for both staple removal as well as to set up down load schedule Spoke with patient and after procedure was completed.
[2018-06-27 17:48] VITALS: BP 110/74
--- NOTE | 2018-06-27 19:49 | PDIAF ---
- Diagnosis Diagnosis: stroke Code Status: Full Code - Medication Management Discharge Medications: electronically signed and located in the Home Medication List. - Orders Services needed: Speech Language Pathologist - Follow Up Care Current Providers and Referrals: Patient,NotPresent [Unknown] - As per Instructions
--- NOTE | 2018-06-28 09:12 | GDS ---
DISCHARGE DIAGNOSES: 1. Cryptogenic thalamic stroke. 2. Hyperlipidemia. 3. Dysarthria. Please see admission history and physical by Dr. Sea Betts. The patient presented from work with maricel givens. He had CTAs of the head and neck that were negative for any significant vascular disease. H kelechi did not receive lytics because he presented outside the window. Brain MRI showed left thalamic isch emic infarction. An addendum to the report suggests that there was possible risk of a small thrombus from the mid basilar artery related to the patient's arterial fenestration. He had a JOCY showing norm al LVEF, normal wall motion, normal valves. No thrombus in left atrial appendage. Bubble contrast wit h 1 bubble passing from right to left with no color flow. Telemetry was reviewed, and there was no ev idence of atrial fibrillation. Link monitor was implanted. The patient had markedly improved speech b y the time of discharge. I discharged him home on an aspirin, a statin with a Link monitor, neurology followup, and speech therapy. Greater than 30 minutes spent on discharge. /[id number]/MODL
== END 2018-06-27 20:46 | disposition home or self-care (01) | DRG 66 ==
LOC: EDUNIT# → EDBD → F3N 23:29 → OBSVTOIN 06-26 13:48
PROVIDERS: ADMIT Internal Medicine; ATTEND Internal Medicine
PROC: B244ZZ4 Ultrasonography of Right Heart, Transesophageal (ICD-10-PCS; principal; 2018-06-27)
PROC: 0JH60PZ Insertion of Cardiac Rhythm Related Device into Chest Subcutaneous Tissue and Fascia, Open Approach (ICD-10-PCS; principal; 2018-06-27)
DX: I63.9 Cerebral infarction, unspecified (principal); E86.9 Volume depletion, unspecified; E78.5 Hyperlipidemia, unspecified; R47.1 Dysarthria and anarthria
CPT/HCPCS: 84484-PO; 92523-GN; 97161-GP; 97166-GO; 97530-GP; A9585; C1764; G0378; J1644; J2250; J3010; Q9967

== ENCOUNTER 2018-09-23 13:10 | Emergency (ER) | payer BC ==
--- NOTE | 2018-09-23 13:39 | EDPHY ---
HPI/HX/ROS/PE/MDM Narrative: CHIEF COMPLAINT: Chest pain HPI: This is a 43 year old male with history of recent cryptogenic thalamic stroke in 06/2018 and GERD. He presents today complaining of chest pain which began two days ago. Saturday night around 11:30-2:00am, he woke with nausea and epigastric pain and vomited three times. He woke Saturday morning with mild discomfort in his chest which persisted throughout the day. This morning he had continued mild discomfort in his chest which radiated through to his back. His discomfort is exacerbated with movement. No exacerbation with eating. He went to work today and when he described his symptoms, his coworkers recommended he be evaluated. Today in addition to his chest discomfort, he endorses lightheadedness. The patient notes that on Saturday, he was shoveling snow and had no symptoms at that time. He takes daily ASA since then as directed. REVIEW OF SYSTEMS: A comprehensive 10 system review of systems is otherwise negative aside from elements mentioned in the history of present illness and medical decision making. PMH: Cryptogenic thalamic stroke in 06/2018. GERD SOCIAL HISTORY: Employed. . Lives in [place]. PHYSICAL EXAM: General:Patient is alert, in no acute distress. ENT:Eyes are normal to inspection. ENT inspection normal. Neck: Normal inspection. Full range of motion. Respiratory:No respiratory distress. Breath sounds normal bilaterally. Cardiovascular: Regular rate and rhythm. Strong peripheral pulses. Normal cap refill. Abdomen:The abdomen is nontender to palpation. There are no peritoneal signs. There are normal bowel sounds. Back: Normal to inspection. No tenderness to palpation. Skin: Normal color. No rash. Warm and dry. Extremities: Normal appearance. Full range of motion. Neuro: Oriented x3. Normal motor function. Normal sensory function. ED Course: 43-year-old male presents with two day history of chest pain. He is well- appearing, exam largely unremarkable. Plan for EKG, chest x-ray, labs including CBC, chemistries, POC troponin. Plan to administer 1L IV NS, 30mg IV Toradol, and GI cocktail for symptom relief. EKG was ordered and interpreted by myself. Please see [facility] system for official reading. POC troponin negative. Labs otherwise largely unremarkable. Chest x-ray is negative for acute processes. 14:40 Reassessed patient. Discussed imaging and laboratory studies. I offered admission for further evaluation, but the patient declines. Given negative cardiac workup today, I feel this patient is safe for outpatient followup. Plan to discharge home in good condition with referral to cardiology. Follow up and strict return precautions discussed. He is comfortable with this plan. - Data Points Imaging Results: Imaging Impressions Chest X-Ray 09/23/18 13:34 Impression: Clear lungs. No acute process. Imaging: I viewed and interpreted images myself Laboratory Results: Laboratory Results 09/23/18 13:37 09/23/18 13:37 09/23/18 09/23/18 09/23/18 13:41 13:37 13:37 WBC 10.25 10^3/uL H 10^3/uL (3.80-9.50) RBC 5.72 10^6/uL 10^6/uL (4.40-6.38) Hgb 16.4 g/dL g/dL (13.7-17.5) Hct 49.7 % % (40.0-51.0) MCV 86.9 fL fL (81.5-99.8) MCH 28.7 pg pg (27.9-34.1) MCHC 33.0 g/dL g/dL (32.4-36.7) RDW 12.3 % % (11.5-15.2) Plt Count 183 10^3/uL 10^3/uL (150-400) MPV 11.0 fL fL (8.7-11.7) Neut % (Auto) 56.7 % % (39.3-74.2) Lymph % (Auto) 33.0 % % (15.0-45.0) [place] % (Auto) 8.2 % % (4.5-13.0) Eos % (Auto) 1.2 % % (0.6-7.6) Baso % (Auto) 0.6 % % (0.3-1.7) Nucleat RBC Rel Count 0.0 % % (0.0-0.2) Absolute Neuts (auto) 5.82 10^3/uL 10^3/uL (1.70-6.50) Absolute Lymphs (auto) 3.38 10^3/uL H 10^3/uL (1.00-3.00) Absolute Monos (auto) 0.84 10^3/uL H 10^3/uL (0.30-0.80) Absolute Eos (auto) 0.12 10^3/uL 10^3/uL (0.03-0.40) Absolute Basos (auto) 0.06 10^3/uL 10^3/uL (0.02-0.10) Absolute Nucleated RBC 0.00 10^3/uL 10^3/uL (0-0.01) Immature Gran % 0.3 % % (0.0-1.1) Immature Gran # 0.03 10^3/uL 10^3/uL (0.00-0.10) Platelet Estimate Not Reported Sodium 138 mEq/L mEq/L (135-145) Potassium 5.3 mEq/L H mEq/L (3.5-5.2) Chloride 107 mEq/L mEq/L (97-110) Carbon Dioxide 21 mEq/l L mEq/l (22-31) Anion Gap 10 mEq/L mEq/L (6-14) BUN 13 mg/dL mg/dL (7-23) Creatinine 0.8 mg/dL mg/dL (0.7-1.3) Estimated GFR > 60 Glucose 88 mg/dL mg/dL (70-100) Calcium 9.6 mg/dL mg/dL (8.5-10.4) POC Troponin I 0.00 ng/mL ng/mL (0.00-0.08) Specimen Hemolysis 127 Medications Given: Discontinued Medications Al Hydroxide/Mg Hydroxide (Maalox Susp) 30 ml PO ONCE ONE Stop: 09/23/18 13:42 Last Admin: 09/23/18 13:57 Dose: 30 ml Hyoscyamine Sulfate (Levsin, Hyomax-Sl) 0.25 mg PO ONCE ONE Stop: 09/23/18 13:42 Last Admin: 09/23/18 13:53 Dose: 0.25 mg Sodium Chloride (Ns) 1,000 mls @ 0 mls/hr IV EDNOW ONE; Wide Open PRN Reason: Protocol Stop: 09/23/18 13:42 Last Admin: 09/23/18 13:57 Dose: 1,000 mls Ketorolac Tromethamine (Toradol) 30 mg IVP EDNOW ONE Stop: 09/23/18 13:42 Last Admin: 09/23/18 13:57 Dose: 30 mg Lidocaine (Lidocaine 2% Viscous) 15 ml PO ONCE ONE Stop: 09/23/18 13:42 Last Admin: 09/23/18 13:57 Dose: 15 ml Point of Care Test Results: Chemistry 09/23/18 13:41 POC Troponin I 0.00 ng/mL ng/mL (0.00-0.08) General Time Seen by Provider: 09/23/18 13:24 Initial Vital Signs: Initial Vital Signs Temperature (C) 36.6 C 09/23/18 13:12 Heart Rate 82 09/23/18 13:12 Respiratory Rate 16 09/23/18 13:12 O2 Sat (%) 94 09/23/18 13:12 O2 Delivery Mode Room Air Allergies/Adverse Reactions: No Known Allergies Allergy (Unverified 04/26/18 22:25) Home Medications: Medication Instructions Recorded Aspirin [Aspirin 325 mg (*)] 325 mg PO DAILY tab 06/27/18 Departure - Departure Disposition: Home, Routine, Self-Care Clinical Impression: Chest pain Qualifiers: Chest pain type: other chest pain Qualified Code(s): R07.89 - Other chest pain Condition: Good Instructions: Chest Pain (ED) Additional Instructions: Follow-up with your primary doctor within 72 hours. Return to the Emergency Department for fever, chest pain, shortness of breath, increasing pain or other worsening of condition. Follow up with a creping machine operator helper for further testing, as soon as possible, within one week. As we discussed, it is impossible to fully rule out heart disease as the cause of your chest pain in the emergency department. We would be happy to reevaluate you and observe you in the hospital at any time. Referrals: Lucina Jaeger MD [Primary Care Provider] - As per Instructions Cooper Sanders MD [Medical Doctor] - As per Instructions Report Scribed for: Tam Cartwright Report Scribed by: Adriana Mcknight Date of Report: 09/23/18 Time of Report: 13:34 Physician Review and Approval Statement: Portions of this note were transcribed by an ED scribe. I personally performed the history, physical exam, and medical decision making; and confirm the accuracy of the information in the transcribed note.
[2018-09-23] MEDS ORDERED: NS 1,000 ML IV ONE (13:41)
[2018-09-23] MEDS ORDERED: KETOROLAC 30 MG/1 ML SDV IVP ONE (13:41)
[2018-09-23] MEDS ORDERED: LIDOCAINE 2% VISCOUS 15 ML UDCUP PO ONE (13:41)
[2018-09-23] MEDS ORDERED: HYOSCYAMINE SULFATE 0.125 MG TAB PO ONE (13:41)
[2018-09-23] MEDS ORDERED: MAG HYDROX/AL HYDROX/SIMETH 30 ML UDCUP PO ONE (13:41)
[2018-09-23 14:29] LABS: PLATELET COUNT 183 10^3/uL (150-400)
[2018-09-23 15:17] VITALS: BP 128/80
--- NOTE | 2018-09-27 07:48 | CPEKG ---
Test Reason : OPEN Blood Pressure : / mmHG Vent. Rate : 073 BPM Atrial Rate : 073 BPM P-R Int : 154 ms QRS Dur : 084 ms QT Int : 367 ms P-R-T Axes : 006 002 035 degrees QTc Int : 405 ms Sinus rhythm Confirmed by Tam Cartwright ([id number] on 09/27/2018 7:47:35 AM Referred By: Tam Cartwright Confirmed By:Tam Cartwright
== END 2018-09-23 15:11 | disposition home or self-care (01) ==
DX: R07.89 Other chest pain (principal)
CPT/HCPCS: 84484-ER; 96374; J1885

== ENCOUNTER → 2018-10-02 | Outpatient (CLI) | payer BC ==
[~2018-10-02] MED LIST: GADOBUTROL 10 ML VIAL IVP ONE
== END ==
LOC: FIMAGING 12:24
PROVIDERS: ATTEND Psychiatry & Neurology Neurology
DX: I63.9 Cerebral infarction, unspecified (principal)
CPT/HCPCS: A9585